=== PATIENT | female | born 1980 | race American Indian/Alaskan Native ===

== ENCOUNTER 2018-02-19 18:09 | Emergency (ER) | payer SELFPAY | END 2018-02-19 18:13 | disposition left against medical advice (07) | LOC: ED 18:09 ==

== ENCOUNTER 2019-03-26 11:30 | Day surgery (SDC) | payer BC ==
[2019-03-26] MEDS ORDERED: SODIUM CHLORIDE 0.9% 1000 ML 1,000 ML IV ONE ×2 (11:53→14:28)
[2019-03-26] MEDS ORDERED: METOCLOPRAMIDE 10 MG/2 ML INJ IV ONE (11:55)
[2019-03-26] MEDS ORDERED: ACETAMINOPHEN 325 MG TAB PO ONE (11:55)
[2019-03-26 12:38] LABS: Basophils % (Auto) 0.6 % (0.0-1.8); Eosinophils # (Auto) 0.1 K/mm3 (0.0-0.4); Eosinophils % (Auto) 0.8 % (0.0-4.3); Hematocrit 22.5 % (30.3-42.9); Hemoglobin 7.6 gm/dl (10.1-14.3); Lymphocytes # (Auto) 2.4 K/mm3 (1.2-5.4); Lymphocytes % (Auto) 30.8 % (13.4-35.0); Mean Corpuscular HGB Conc 34 % (30-34); Mean Corpuscular Volume 84 fl (79-97); Monocytes # (Auto) 0.5 K/mm3 (0.0-0.8); Monocytes % (Auto) 5.9 % (0.0-7.3); Platelet Count 247 K/mm3 (140-440); Red Blood Count 2.69 M/mm3 (3.65-5.03); Red Cell Distribution Width 19.2 % (13.2-15.2)
--- NOTE | 2019-03-26 12:46 | Emergency Department Report ---
HPI - General Chief Complaint: Vaginal Bleeding Time Seen by Provider: 03/26/19 11:53 - HPI HPI: 38-year-old aftermath female presents to the emergency department via EMS from home with complaint of a one-week history of intermittent lower abdominal and p elvic cramping pain that has been getting progressively worse and more constant. She also developed some moderate to heavy vaginal bleeding that started a few hours prior to arrival. Patient is currently 8 weeks and with this she is . She follows with a Dr. Jiménez at [facility] [place] she has a history of hypertension. She has not taken anything for her symptoms prior to arrival today. ED Past Medical Hx - Past Medical History Previous Medical History?: Yes Hx Hypertension: Yes - Surgical History Past Surgical History?: No - Social History Smoking Status: Former Smoker Substance Use Type: None - Medications Home Medications: Home Medications Medication Instructions Recorded Confirmed Last Taken Type NIFEdipine [Nifedipine ER] 60 mg PO DAILY 03/26/19 03/26/19 Unknown History ED Review of Systems ROS: Stated complaint: ABDOMINAL PAIN/VAG BLEED Other details as noted in HPI Comment: All other systems reviewed and negative Constitutional: denies: chills, fever Eyes: denies: eye pain, vision change ENT: denies: ear pain, throat pain Respiratory: denies: cough, shortness of breath Cardiovascular: denies: chest pain, palpitations Gastrointestinal: abdominal pain. denies: vomiting Genitourinary: other (vaginal bleeding, pelvic cramping). denies: dysuria, d ischarge Musculoskeletal: denies: back pain, arthralgia Skin: denies: rash, lesions Neurological: denies: headache, weakness Physical Exam - Physical Exam Vital Signs: Vital Signs 03/26/19 03/26/19 11:44 12:00 Temperature 97.9 F Pulse Rate 105 H Respiratory 22 22 Rate Blood Pressure 98/60 O2 Sat by Pulse 100 Oximetry Physical Exam: GENERAL: The patient is well-developed well-nourished. HEENT: Normocephalic. Atraumatic. Patient has moist mucous membranes. EYES: Extraocular motions are intact. NECK: Supple. Trachea is midline. CHEST/LUNGS: Clear to auscultation. There is no respiratory distress noted. HEART/CARDIOVASCULAR: Regular. There is mild tachycardia. There is no murmur. ABDOMEN: Abdomen is soft. There is generalized abdominal tenderness. Mild guarding. Patient has normal bowel sounds. There is no abdominal distention. SKIN:Skin is warm and dry. . NEURO: The patient is awake, alert, and oriented. The patient is cooperative. The patient has no focal neurologic deficits. Normal speech. MUSCULOSKELETAL: There is no tenderness or deformity. There is no evidence of acute injury. ED Course Vital Signs 03/26/19 03/26/19 11:44 12:00 Temperature 97.9 F Pulse Rate 105 H Respiratory 22 22 Rate Blood Pressure 98/60 O2 Sat by Pulse 100 Oximetry - Consultations Consultation #1: 03/26/19 14:[address] Myers, [employer] transmission calibration engineer for [facility]. He is now aware of the patient's presentation and findings of ruptured ectopic. He has asked for 2 units of packed red blood cells to be ordered for transfusion and he is arranging for the patient to go to the operating room. ED Medical Decision Making - Lab Data Result diagrams: 03/26/19 12:22 03/26/19 12:22 - Radiology Data Radiology results: report reviewed OB ULTRASOUND/TRANSVAGINAL IMAGING 03/26/2019 INDICATION / CLINICAL INFORMATION: pelvic pain, bleeding, . COMPARISON: None available. FINDINGS: A complex right adnexal mass is identified containing a structure with the cardiac activity recorded at rate of 186 bpm. There is associated complex fluid in the pelvis. The uterus measures 10.5 cm with no evidence of intrauterine . The left ovary is normal. IMPRESSION: Ectopic in the right adnexa with complex free fluid. ULTRASOUND ABDOMEN, COMPLETE INDICATION: Abd pain, . COMPARISON: No relevant prior imaging study available. FINDINGS: Pancreas: Visualized portion is normal, the tail is not identified due to overlying gas. Abdominal Aorta: No significant abnormality. IVC: No significant abnormality. Liver: A 2 cm hyperechoic lesion is identified in the left lobe of the liver consistent with cavernous hemangioma.. Gallbladder: No significant abnormality. Bile ducts: No significant abnormality. Common bile duct measures 4 mm. Kidneys: Right: No significant abnormality. Left : No significant abnormality. Spleen: No significant abnormality. Free fluid: Small amount of the upper abdominal ascites is identified.. Additional Findings: None. IMPRESSION: 1. Abdominal ascites. - Medical Decision Making This patient presents with a one-week history of progressively worsening abdominal and pelvic pains and a one-day history of vaginal bleeding. The patient is about 8 weeks . Patient presented with some borderline hypotension so a liter of IV fluid was ordered. The patient was given some Tylenol for her discomfort while the rest of her evaluation was completed. Labs show a hemoglobin of 7.6 and the patient denies any history of anemia. She has a mild hypokalemia. Both a transvaginal/ ultrasound, and an abdominal ultrasound, were done that came back showing suspicion for a right-sided adnexal ruptured ectopic . Dr Myers, [employer], is covering for [facility] and he was contacted regarding the critical findings. 2 units of packed red blood c ells have been ordered for transfusion and the [employer] came in to see the patient in the emergency department and is taking her to the operating room. All of the lab and imaging results, as well as the plan for surgery, were discussed with the patient and all questions have been answered. - Differential Diagnosis , miscarriage, ectopic , fibroids, ovarian cyst Critical Care Time: Yes Critical care time in (mins) excluding proc time.: 35 Critical care attestation.: If time is entered above; I have spent that time in minutes in the direct care of this critically ill patient, excluding procedure time. Critical care time was spent on this patient and doing her initial evaluation, multiple re- evaluations, resuscitation with IV fluid and transfusion of packed red blood cells, discussion with the [employer], multiple discussions with the patient and her significant other. Critical Care Time: 35 minutes ED Disposition Clinical Impression: Ruptured ectopic Ectopic Qualifiers: Location of ectopic : tubal Intrauterine status: without intrauterine Laterality: right Qualified Code(s): O00.101 - Right tubal without intrauterine Disposition: OP ADMIT IP TO THIS HOSP Is pt being admited?: Yes Condition: Serious Referrals: PRIMARY CARE, [Primary Care Provider] - 3-5 Days Time of Disposition: 15:39
[2019-03-26 14:07] LABS: Alanine Aminotransferase 8 units/L (7-56); Albumin 3.5 g/dL (3.9-5); BUN/Creatinine Ratio 17; Blood Urea Nitrogen 10 mg/dL (7-17); Calcium 8.6 mg/dL (8.4-10.2); Hemolysis Index 12
--- NOTE | 2019-03-26 14:08 | Ultrasound Report ---
ULTRASOUND ABDOMEN, COMPLETE INDICATION: Abd pain, . COMPARISON: No relevant prior imaging study available. FINDINGS: Pancreas: Visualized portion is normal, the tail is not identified due to overlying gas. Abdominal Aorta: No significant abnormality. IVC: No significant abnormality. Liver: A 2 cm hyperechoic lesion is identified in the left lobe of the liver consistent with cavernou s hemangioma.. Gallbladder: No significant abnormality. Bile ducts: No significant abnormality. Common bile duct measures 4 mm. Kidneys: Right: No significant abnormality. Left : No significant abnormality. Spleen: No significant abnormality. Free fluid: Small amount of the upper abdominal ascites is identified.. Additional Findings: None. IMPRESSION: 1. Abdominal ascites. Signer Name: Nacho Stinson MD Signed: 03/26/2019 2:03 PM Workstation Name: [email or web address]
--- NOTE | 2019-03-26 14:19 | Ultrasound Report ---
OB ULTRASOUND/TRANSVAGINAL IMAGING 03/26/2019 INDICATION / CLINICAL INFORMATION: pelvic pain, bleeding, . COMPARISON: None available. FINDINGS: A complex right adnexal mass is identified containing a structure with the cardiac activity recorded at rate of 186 bpm. There is associated complex fluid in the pelvis. The uterus measures 10.5 cm with no evidence of intrauterine . The left ovary is normal. IMPRESSION: Ectopic in the right adnexa with complex free fluid. CRITICAL RESULT: Time of Discovery: 1310 hours Time of Communication: 1314 hours Licensed Practitioner Receiving Report: Dr. Bland Read Back Performed: Yes. Signer Name: Nacho Stinson MD Signed: 03/26/2019 2:15 PM Workstation Name: [id number]
[2019-03-26] MEDS ORDERED: SODIUM CHLORIDE 0.9% 500 ML 500 ML IV ONE (14:27)
--- NOTE | 2019-03-26 15:18 | History and Physical Report ---
History of Present Illness Date of examination: 03/26/19 Date of admission: 03/26/2019 Chief complaint: abdominal pain x 1 wk History of present illness: Had been under investigation for a possible ectopic . came to the er today with worsening pain. Positive preg test with no identifiable iup and free peritoneal fluid. Past History Past Surgical History: other (tubal reversal in 2018.) Medications and Allergies Allergies Allergy/AdvReac Type Severity Reaction Status Date / Time No Known Allergies Allergy Unverified 03/26/19 11:47 Home Medications Medication Instructions Recorded Confirmed Last Taken Type NIFEdipine [Nifedipine ER] 60 mg PO DAILY 03/26/19 03/26/19 Unknown History Active Meds: Active Medications Sodium Chloride (Nacl 0.9% 1000 Ml) 1,000 mls @ 125 mls/hr IV ONCE ONE Stop: 03/26/19 22:27 Potassium Chloride (Kcl 10meq/100ml) 10 meq in 100 mls @ 100 mls/hr IV Q1H MARAH Stop: 03/26/19 16:59 Review of Systems All systems: negative Gastrointestinal: abdominal pain - Vital Signs Vital signs: Vital Signs Temp Pulse Resp BP Pulse Ox 97.9 F 105 H 22 98/60 100 03/26/19 11:44 03/26/19 11:44 03/26/19 11:44 03/26/19 11:44 03/26/19 11:44 Temp Pulse Resp BP Pulse Ox 98.7 F 105 H 22 92/53 100 03/26/19 14:27 03/26/19 14:01 03/26/19 14:01 03/26/19 14:01 03/26/19 14:01 - Physical Exam Lungs: Positive: Normal air movement Abdomen: Positive: distention, tenderness, guarding Results Result Diagrams: 03/26/19 12:22 03/26/19 12:22 Abnormal lab results 03/26/19 03/26/19 Range/Units 12:22 12:22 RBC 2.69 L (3.65-5.03) M/mm3 Hgb 7.6 L (10.1-14.3) gm/dl Hct 22.5 L (30.3-42.9) % RDW 19.2 H (13.2-15.2) % Sodium 134 L (137-145) mmol/L Potassium 3.2 L (3.6-5.0) mmol/L Carbon Dioxide 19 L (22-30) mmol/L Creatinine 0.6 L (0.7-1.2) mg/dL Glucose 104 H (65-100) mg/dL Albumin 3.5 L (3.9-5) g/dL All other labs normal. Assessment and Plan - Patient Problems (1) Ectopic Current Visit: Yes Status: Acute Plan to address problem: for exploratory laparoscopy and excision of ectopic .
[2019-03-26] MEDS: POTASSIUM CHLORIDE 10 MEQ 10 MEQ/100 ML BAG IV SCH ×2 (15:44→18:50)
[2019-03-26] MEDS ORDERED: propofoL 200 MG/20 ML VIAL IV ONE (16:09)
[2019-03-26] MEDS ORDERED: LIDOCAINE MPF (2%) 20 MG/1 ML VIAL 5 ML ONE (16:09)
[2019-03-26] MEDS ORDERED: dexAMETHasone 20 MG/5 ML VIAL ONE (16:10)
[2019-03-26] MEDS ORDERED: ROCURONIUM 50 MG/5 ML INJ IV ONE (16:10)
[2019-03-26] MEDS ORDERED: KETOROLAC 30 MG/1 ML INJ ONE (16:10)
[2019-03-26] MEDS ORDERED: fentaNYL 100 MCG/2 ML INJ ONE (16:10)
[2019-03-26] MEDS ORDERED: KETAMINE/STERILE WATER 50 MG/ML SYRINGE ONE (16:11)
[2019-03-26] MEDS ORDERED: ONDANSETRON 4 MG/2 ML INJ ONE (16:11)
[2019-03-26] MEDS ORDERED: CITRIC ACID-SOD CITRATE 500 ML IV ONE (16:14)
[2019-03-26] MEDS ORDERED: HYDROmorphone 1 MG/1 ML INJ IV PRN (16:25)
[2019-03-26] MEDS ORDERED: ONDANSETRON 4 MG/2 ML INJ IV PRN (16:25)
--- NOTE | 2019-03-26 16:25 | Anesthesia Consultation ---
Anesthesia Consult and Med Hx Date of service: 03/26/19 - Airway Anesthetic Teeth Evaluation: Good ROM Head & Neck: Adequate Mental/Hyoid Distance: Adequate Mallampati Class: Class II Intubation Access Assessment: Good - Pre-Operative Health Status ASA Pre-Surgery Classification: ASA2, Emergency Proposed Anesthetic Plan: General - Pulmonary Hx Smoking: Yes (Quit 7 weeks ago) - Cardiovascular System Hx Hypertension: Yes - Gastrointestinal Hx Gastroesophageal Reflux Disease: No - Hematic Hx Sickle Cell Disease: No
--- NOTE | 2019-03-26 16:25 | Anesthesia Day of Surgery ---
Anesthesia Day of Surgery - Day of Surgery Patient Examined: Yes Patient H&P Reviewed: Yes Patient is NPO: Yes (0700)
[2019-03-26] MEDS ORDERED: ceFAZolin 1 GM VIAL ONE ×2 (16:30)
[2019-03-26] MEDS ORDERED: CITRIC ACID-SOD CITRATE SOLN 500 ML IV SOLN IV ONE (16:50)
[2019-03-26] MEDS ORDERED: SODIUM CHLORIDE 0.9% IRR 1,000 ML BOTTLE IR ONE (16:50)
[2019-03-26] MEDS ORDERED: SODIUM CHLORIDE 0.9% IRRIG SOLN 2000 ML IR ONE (16:50)
[2019-03-26] MEDS ORDERED: LACTATED RINGERS 1,000 ML ONE (17:09)
[2019-03-26] MEDS ORDERED: HYDROmorphone 1 MG/1 ML INJ ONE (17:30)
[2019-03-26] MEDS ORDERED: NEOSTIGMINE 10MG/10 ML INJ MDV ONE (17:54)
[2019-03-26] MEDS ORDERED: GLYCOPYRROLATE 0.4 MG/2 ML INJ ONE (17:54)
[2019-03-26] MEDS ORDERED: SODIUM CHLORIDE 0.9% 500 ML 500 ML ONE (18:05)
[2019-03-26] MEDS ORDERED: HYDROcodone/ACETAMINOPHEN 5-325 MG TAB PO PRN (18:22)
[2019-03-26] MEDS ORDERED: ACETAMINOPHEN 325 MG TAB PO PRN (18:22)
[2019-03-26] MEDS ORDERED: IBUPROFEN 600 MG TAB PO PRN (18:22)
--- NOTE | 2019-03-26 18:40 | Operative Report ---
Operative Report Operative Report: Date of surgery: March 26, 2019 Pre Op Diagnosis: Ectopic , ruptured. Post Op Diagnosis: Same. Procedures: Exploratory laparoscopy. Surgeon: Bharath Hester MD Anesthesiologist: MD [employer] Store Manager: ANDREAS Graff Anesthesia: GA EBL: 50cc or less and not including the hemoperitoneum from the ruptured ectopic. Complications: None Findings: Ruptured and bleeding mass was noted in the right adnexa. The fallopian tube as well as they ovary on the right side were inseparable. The uterus was of normal size and freely mobile within the pelvis. The left ovary was grossly normal. The left fallopian tube looked shortened. No abnormality was noted on the bowels, omentum, liver and inferior dome of the diaphragm Procedure in details: The patient was taken to the operating room, she was placed in the straight supine position and given general anesthesia. Patient was then put in the lithotomy position and prepped in the vulva vagina and abdomen. The drapes were placed. A timeout was done. With the go ahead from the building mover, a bimanual examination of the pelvis was done. An indwelling Lambert catheter was placed. The single tooth tenaculum was used to stabilize the anterior lip of the cervix. At the navel, a subumbilical stab incision was placed. The Veress needle was inserted into the peritoneal cavity, making sure to point the tip of this instrument into the free hollow of the pelvis. The Veress needle was initially aspirated and no blood was drawn. The Veress needle was then flushed through with a small quantity of sterile normal saline without any resistance. The general peritoneal cavity was thereafter insufflated with 3 L of carbon dioxide. The Veress needle was removed and through the same stab incision a 5 mm trocar was inserted into the peritoneal cavity and again making sure to point the tip of this instrument into the free hollow of the pelvis. The laparoscope was inserted and confirmed successful access to the peritoneal cavity. Under vision through the laparoscope, 2 additional ports [a 5mm & 10m] were placed, one for each flank. The general peritoneal cavity was examined. The findings have been reported above. The patient was then put in the Trendelenburg position. The mass delineated in the right adnexa was excised using the LigaSure in 1 block and retrieved from the peritoneal cavity using the Endo bag. The surgical fernandez were irrigated with sterile normal saline and no active bleeding was observed. The patient was returned to the straight supine position and the injected fluid was then aspirated. Procedure was terminated. All instruments were withdrawn from the peritoneal cavity. The 2 small stab incisio ns were sealed with Dermabond, while the third incision that carried the 10 mm port was sewn with 2-0 Vicryl. The vaginal and instruments were withdrawn. All sponges and instruments were accounted for. The Lambert catheter was removed. There were no complications. The estimated blood loss was less than 50 mL. The patient tolerated the procedure well and was transferred to the recovery room in very good condition.
--- NOTE | 2019-03-26 19:04 | Post Anesthesia Evaluation ---
- Post Anesthesia Evaluation Patient Participated: Yes Airway Patent: Yes Stable Respiratory Function: Yes Nausea/Vomiting: No Temp > 96.8F: Yes Pain Manageable: Yes Adequeate Hydration: Yes Anesthesia Complications: No Block Receding Appropriately: Not Applicable Patient on Ventilator: No
[2019-03-26 20:36] LABS: Hematocrit 26.3 % (30.3-42.9); Hemoglobin 8.4 gm/dl (10.1-14.3)
[2019-03-26 21:17] VITALS: BP 117/71
== END 2019-03-26 21:05 | disposition home or self-care (01) ==
LOC: ED 11:30 → OR 11:30 → EDSTATUS 16:15 → OR 21:05
PROVIDERS: ATTEND Emergency Medicine
DX: O00.80 Other ectopic pregnancy without intrauterine pregnancy (principal); I10 Essential (primary) hypertension; F17.210 Nicotine dependence, cigarettes, uncomplicated; Z79.899 Other long term (current) drug therapy
CPT/HCPCS: 36415; 59151; 76700; 76801; 76817; 80053; 84132; 84703; 85014; 85018; 85025; 85461; 86850; 86900; 86901; 86920; 88305; A4217; J0690; J1100; J1170; J1885; J2405; J2704; J2710; J2765; J2790; J3010; J3480; J7030; J7040; J7120; 88302

== ENCOUNTER 2019-03-31 10:01 | Emergency (ER) | payer BC ==
--- NOTE | 2019-03-31 10:55 | Emergency Department Report ---
HPI - General Chief Complaint: Laceration/Recheck/Suture Time Seen by Provider: 03/31/19 10:42 - HPI HPI: Room 22 The patient is a 38-year-old female presenting with a chief complaint of bleeding from surgical site. The patient is status post laparoscopic surgery for ectopic 03/26/2019. The patient states she was in her usual state of health when she awakened this morning and noticed bleeding from the surgical site. Patient states her abdominal pain is unchanged since the postop period. Patient denies history of fever ED Past Medical Hx - Past Medical History Hx Hypertension: Yes - Surgical History Past Surgical History?: Yes Additional Surgical History: Bilateral tubal ligation with reversal. Ectopic surgery - Family History Family history: no significant - Social History Smoking Status: Current Every Day Smoker (1/2 pack/day) Substance Use Type: None (Denies illicit drug use) - Medications Home Medications: Home Medications Medication Instructions Recorded Confirmed Last Taken Type NIFEdipine [Nifedipine ER] 60 mg PO DAILY 03/26/19 03/26/19 Unknown History ED Review of Systems ROS: Stated complaint: BLEEDING FROM SURGERY Other details as noted in HPI Constitutional: denies: fever Gastrointestinal: denies: abdominal pain Hematological/Lymphatic: other (Bleeding from surgical site) Physical Exam - Physical Exam Vital Signs: Vital Signs 03/31/19 10:12 Temperature 98.6 F Pulse Rate 88 Respiratory 20 Rate Blood Pressure 166/99 O2 Sat by Pulse 100 Oximetry Physical Exam: GEN: WD WN female lying on stretcher in NAD. Front of gown stained with small amount of blood at the periumbilical region HEENT: NCAT, EOMI NECK: trachea midline PULM: No resp distress noted CV: rrr no m/r/g ABD: soft. Appropriate postop tenderness. Umbilical surgical Band-Aid removed no active bleeding visualized SKIN: no diaphoresis NEURO: GCS 15 MUSCULOSKELETAL: No evidence of acute injury ED Course Vital Signs 03/31/19 10:12 Temperature 98.6 F Pulse Rate 88 Respiratory 20 Rate Blood Pressure 166/99 O2 Sat by Pulse 100 Oximetry - Reevaluation(s) Reevaluation #1: 03/31/19 13:34 Patient does not wish to wait for resolution of wound VAC placement. Patient will follow up with her [employer] - Consultations Consultation #1: 03/31/19 10:53 OB paged 03/31/19 11:[address] Hester- will come evaluate patient 03/31/19 12:[address] Hester in ED. requests wound VAC to be placed then patient can be discharged home ED Medical Decision Making - Lab Data Result diagrams: 03/31/19 10:55 03/31/19 10:55 Laboratory Tests 03/31/19 03/31/19 03/31/19 10:55 10:55 10:55 WBC 8.6 RBC 3.31 L Hgb 9.5 L Hct 27.5 L MCV 83 MCH 29 MCHC 35 H RDW 19.7 H Plt Count 344 Lymph % (Auto) 19.0 Slope % (Auto) 5.0 Eos % (Auto) 0.7 Baso % (Auto) 0.5 Lymph # 1.6 Slope # 0.4 Eos # 0.1 Baso # 0.0 Seg Neutrophils % 74.8 H Seg Neutrophils # 6.4 PT 12.9 INR 0.96 APTT 26.3 Sodium 141 D Potassium 4.0 Chloride 104.3 Carbon Dioxide 22 Anion Gap 19 BUN 13 Creatinine 0.8 Estimated GFR > 60 BUN/Creatinine Ratio 16 Glucose 88 Calcium 8.8 Total Bilirubin 0.30 AST 17 ALT 14 Alkaline Phosphatase 58 Total Protein 6.5 Albumin 3.8 L Albumin/Globulin Ratio 1.4 HCG, Quant 03/31/19 10:55 WBC RBC Hgb Hct MCV MCH MCHC RDW Plt Count Lymph % (Auto) Slope % (Auto) Eos % (Auto) Baso % (Auto) Lymph # Slope # Eos # Baso # Seg Neutrophils % Seg Neutrophils # PT INR APTT Sodium Potassium Chloride Carbon Dioxide Anion Gap BUN Creatinine Estimated GFR BUN/Creatinine Ratio Glucose Calcium Total Bilirubin AST ALT Alkaline Phosphatase Total Protein Albumin Albumin/Globulin Ratio HCG, Quant 453.6 H - Differential Diagnosis Postop bleeding Critical care attestation.: If time is entered above; I have spent that time in minutes in the direct care of this critically ill patient, excluding procedure time. ED Disposition Clinical Impression: Postoperative bleeding from incision Disposition: DC-01 TO HOME OR SELFCARE Is pt being admited?: No Does the pt Need Aspirin: No Condition: Stable Referrals: PAXTON HESTER MD [Staff Physician] - 3-5 Days Time of Disposition: 13:34
[2019-03-31 11:41] LABS: Basophils % (Auto) 0.5 % (0.0-1.8); Eosinophils # (Auto) 0.1 K/mm3 (0.0-0.4); Eosinophils % (Auto) 0.7 % (0.0-4.3); Hematocrit 27.5 % (30.3-42.9); Hemoglobin 9.5 gm/dl (10.1-14.3); Lymphocytes # (Auto) 1.6 K/mm3 (1.2-5.4); Mean Corpuscular HGB Conc 35 % (30-34); Mean Corpuscular Volume 83 fl (79-97); Monocytes # (Auto) 0.4 K/mm3 (0.0-0.8); Platelet Count 344 K/mm3 (140-440); Red Blood Count 3.31 M/mm3 (3.65-5.03); Red Cell Distribution Width 19.7 % (13.2-15.2)
[2019-03-31 11:44] LABS: INR 0.96 (0.87-1.13)
[2019-03-31 11:45] LABS: Partial Thromboplastin Time 26.3 Sec. (24.2-36.6)
[2019-03-31 11:58] LABS: Alanine Aminotransferase 14 units/L (7-56); Albumin 3.8 g/dL (3.9-5); BUN/Creatinine Ratio 16; Blood Urea Nitrogen 13 mg/dL (7-17); Calcium 8.8 mg/dL (8.4-10.2); Hemolysis Index 22
[2019-03-31 13:23] LABS: Bacteria,Urine 1+ /HPF (Negative); Bilirubin,Urine NEG (Negative); Blood,Urine LG (Negative); Color,Urine Yellow (Yellow); Mucus,Urine 2+ /HPF; Protein,Urine <15 mg/dL mg/dL (Negative); Urobilinogen,Urine < 2.0 mg/dL (<2.0)
[2019-03-31 13:25] LABS: RBC,Urine > 182.0 /HPF (0.0-6.0)
--- NOTE | 2019-03-31 14:27 | Event Note ---
Date: 03/31/19 Was called into the emergency room to take a look at patient's sub-umbilical stab incision which was slightly oozing burgundy colored red. Patient was otherwise in no distress. No active bleeding was seen. Physical examination showed the surrounding tissues to be supple with no evidence of induration or hematoma. There was no evidence of hyperemia. Impression: Post operative state day 5. Oozing stab incision. Plan: A wound VAC was requested through the wound care team. The patient will will be followed up as an outpatient PRN or in 6 days.
[2019-03-31 15:26] VITALS: BP 161/79
== END 2019-03-31 14:35 | disposition home or self-care (01) ==
LOC: ED 10:01
DX: L76.22 Postprocedural hemorrhage of skin and subcutaneous tissue following other procedure (principal); I10 Essential (primary) hypertension; F17.200 Nicotine dependence, unspecified, uncomplicated
CPT/HCPCS: 36415; 80053; 81001; 84702; 85025; 85610; 85730; 87086; 99283